=== PATIENT | female | born 1995 | race Caucasian/White ===

== ENCOUNTER 2025-07-08 16:26 | Emergency (ER) | payer OTHER, SELFPAY ==
[2025-07-08] MEDS ORDERED: Ondansetron PF 4 MG/2 ML Vial ONE (16:42)
[2025-07-08 17:11] LABS: BHCG - Serum Negative (NEGATIVE); Pregs Control Background? CLEAR/WHITE (CLR/WHITE); Pregs Control Bar Appear? YES (CONTROL BAR)
[2025-07-08 17:14] LABS: #Basophils 0.07 10x3/uL (0.0-0.2); #Eosinophils Less than 0.03 10x3/uL (0.0-0.5); #Monocytes 0.71 10x3/uL (0.0-1.1); #Neutrophils 11.66 10x3/uL (1.5-8.4); %Basophils 0.5 % (0.0-2.0); %Eosinophils 0.0 % (0.0-6.0); %Lymphocytes 4.1 % (18.0-47.0); %Monocytes 5.4 % (0.0-10.0); %Neutrophils 89.6 % (40.0-75.0); Hematocrit 42.1 % (34.9-44.5); Hemoglobin 14.2 g/dL (12.0-15.5); Mean Corpuscular Hemoglobin 33.6 pg (27.0-33.0); Mean Corpuscular Volume 99.5 fL (81.6-98.3); Platelet Count 214 10x3/uL (150-450); Red Blood Cell (RBC) Count 4.23 10x6/uL (3.90-5.03); White Blood Cell (WBC) Count 13.03 10x3/uL (3.5-10.5)
[2025-07-08 17:18] LABS: ALT (SGPT) 209 U/L (Less than 34); AST (SGOT) 431 U/L (11-34); Albumin 4.9 g/dL (3.1-4.5); Alkaline Phosphatase 89 U/L (40-110); Anion Gap 36 mmol/L (10-20); BUN (Urea Nitrogen) 7 mg/dL (7.0-18.7); Bilirubin, Total 1.2 mg/dL (0.3-1.2); Calc. Creatinine Clearance 0 mL/min (70-130); Calcium 9.6 mg/dL (7.8-10.44); Carbon Dioxide 10 mmol/L (22-29); Chloride 97 mmol/L (98-107); Globulin 3.5 g/dL (2.4-3.5); Glucose 86 mg/dL (70-105); Magnesium 1.3 mg/dL (1.6-2.6); Potassium 3.8 mmol/L (3.5-5.1); Sodium 139 mmol/L (136-145)
[2025-07-08] MEDS ORDERED: cefTRIAXone (ROCEPHIN) 1 GM VIAL ONE (17:18)
[2025-07-08 17:19] LABS: Glucose, Urine (Dipstick) Normal (Negative); Leukocyte Negative (Negative); Protein, Urine (Dipstick) 500 mg/dl (Neg-Trace); Specific Gravity, Urine 1.030 (1.005-1.030)
[2025-07-08 17:30] LABS: Troponin I Less than 0.010 ng/mL (< 0.028)
[2025-07-08] MEDS ORDERED: Magnesium 2 GM/50 ML BAG (IN WATER) ONE (17:39)
[2025-07-08 17:40] LABS: Actual Bicarbonate (HCO3v) 15.5 mEq/L (22-28); Analyzer IN Cardio CS ER; Base Excess -9.7 mEq/L (-2 - +2); Calcium, Ionized (venous) 1.07 mmol/L (1.16-1.32); Chloride (VBG) 99 mmol/L (98-106); Critical Notified Whom: COCJEF; Hematocrit-VBG 40 % (36.0-47.0); Hemoglobin (Hb) 13.5 g/dL (11.7-15.5); Potassium (VBG) 3.52 mmol/L (3.70-5.30); Puncture Site Other Site; RapidComm Collect By LAB; Sodium 137 mmol/L (133-146)
[2025-07-08 17:44] LABS: Bacteria/HPF 2+ HPF (None Seen); CAUTI Indications for Culture Pelvic or flank pain; Mucous/LPF 2+ LPF (<2+)
[2025-07-08 17:46] LABS: Acetaminophen Less than 10 mcg/mL (Less than 10); Lipase 2314 U/L (8-78); Salicylate Less than 8.0 mg/dL (Less than 8.0)
[2025-07-08 17:51] LABS: Urine Culture Reflex No No
[2025-07-08 18:05] LABS: INR-International Normal Ratio 1.0; PTT 24.1 sec (22.0-33.0); Prothrombin Time 11.4 sec (9.5-12.1)
[2025-07-08 18:22] LABS: Cocaine Metabolite Screen Negative (Negative); THC/Cannabinoid Screen PRELIM POSITIVE (Negative); Tricyclic Screen Negative (Negative)
[2025-07-08] MEDS ORDERED: HYDROmorphone 0.5 MG/0.5 ML SYRINGE ONE (19:08)
[2025-07-08 21:08] LABS: Anion Gap 22 mmol/L (10-20); BUN (Urea Nitrogen) 6 mg/dL (7.0-18.7); Calc. Creatinine Clearance 0 mL/min (70-130); Calcium 7.3 mg/dL (7.8-10.44); Carbon Dioxide 14 mmol/L (22-29); Chloride 105 mmol/L (98-107); Glucose 78 mg/dL (70-105); Potassium 4.5 mmol/L (3.5-5.1); Sodium 136 mmol/L (136-145)
== END 2025-07-08 21:00 | disposition short-term general hospital (02) ==
LOC: CSHERS 16:26
DX: K85.90 Acute pancreatitis without necrosis or infection, unspecified (principal); D27.1 Benign neoplasm of left ovary; N30.90 Cystitis, unspecified without hematuria; E83.42 Hypomagnesemia; E87.20 Acidosis, unspecified; F10.139 Alcohol abuse with withdrawal, unspecified; F17.290 Nicotine dependence, other tobacco product, uncomplicated
CPT/HCPCS: 36415; 71275; 74177; 80053; 80306; 80307; 81001; 82010; 82805; 83605; 83690; 83735; 84100; 84478; 84484; 84703; 85025; 85610; 85730; 87040; 87077; 87086; 87186; 93005; 96361; 96374; 96375; 96376; J0696; J1171; J2060; J2270; J2405; J3411; J3475

== ENCOUNTER 2025-10-06 12:57 | Inpatient (IN) | payer OTHER ==
[~2025-10-06 12:57] MED LIST: Iopamidol 300 61% 100 ML VIAL FS ONE
[2025-10-06] MEDS ORDERED: HYDROmorphone 0.5 MG/0.5 ML SYRINGE ONE ×2 (14:34→16:49)
[2025-10-06 15:05] LABS: #Basophils Less than 0.03 10x3/uL (0.0-0.2); #Eosinophils Less than 0.03 10x3/uL (0.0-0.5); #Monocytes 0.66 10x3/uL (0.0-1.1); #Neutrophils 11.32 10x3/uL (1.5-8.4); %Basophils 0.2 % (0.0-2.0); %Eosinophils 0.0 % (0.0-6.0); %Lymphocytes 2.0 % (18.0-47.0); %Monocytes 5.4 % (0.0-10.0); %Neutrophils 91.8 % (40.0-75.0); Hematocrit 47.4 % (34.9-44.5); Hemoglobin 15.7 g/dL (12.0-15.5); Mean Corpuscular Hemoglobin 32.0 pg (27.0-33.0); Mean Corpuscular Volume 96.5 fL (81.6-98.3); Platelet Count 175 10x3/uL (150-450); Red Blood Cell (RBC) Count 4.91 10x6/uL (3.90-5.03); White Blood Cell (WBC) Count 12.33 10x3/uL (3.5-10.5)
[2025-10-06 15:15] LABS: BHCG - Serum Negative (NEGATIVE); Pregs Control Background? CLEAR/WHITE (CLR/WHITE); Pregs Control Bar Appear? YES (CONTROL BAR)
[2025-10-06 15:19] LABS: Acetaminophen Less than 10 mcg/mL (Less than 10); Lipase 907 U/L (8-78); Magnesium 1.9 mg/dL (1.6-2.6); Salicylate Less than 8.0 mg/dL (Less than 8.0)
[2025-10-06 15:21] LABS: Troponin I Less than 0.010 ng/mL (< 0.028)
[2025-10-06 15:30] LABS: ALT (SGPT) 148 U/L (Less than 34); AST (SGOT) 162 U/L (11-34); Albumin 5.9 g/dL (3.1-4.5); Alkaline Phosphatase 143 U/L (40-110); BUN (Urea Nitrogen) 27 mg/dL (7.0-18.7); Bilirubin, Total 1.4 mg/dL (0.3-1.2); Calc. Creatinine Clearance 0 mL/min (70-130); Calcium 9.4 mg/dL (7.8-10.44); Chloride 94 mmol/L (98-107); Globulin 3.7 g/dL (2.4-3.5); Glucose 378 mg/dL (70-105); Potassium 5.5 mmol/L (3.5-5.1); Sodium 133 mmol/L (136-145)
[2025-10-06 15:42] LABS: Carbon Dioxide Less than 8 mmol/L (22-29)
[2025-10-06] MEDS ORDERED: INSULIN REGULAR IN 0.9 % NACL 100 ML ONE (16:20)
[2025-10-06 17:03] LABS: Cocaine Metabolite Screen Negative (Negative); THC/Cannabinoid Screen Negative (Negative); Tricyclic Screen Negative (Negative)
[2025-10-06 17:25] LABS: Glucose, Urine (Dipstick) >=1000 mg/dL (Negative); Leukocyte Negative (Negative); Protein, Urine (Dipstick) 500 mg/dl (Neg-Trace); Specific Gravity, Urine 1.020 (1.005-1.030)
[2025-10-06 17:28] LABS: Actual Bicarbonate (HCO3v) 11.8 mEq/L (22-28); Analyzer IN Cardio CS ER; Base Excess -12.9 mEq/L (-2 - +2); Calcium, Ionized (venous) 1.14 mmol/L (1.16-1.32); Chloride (VBG) 102 mmol/L (98-106); Critical Notified By: Udy, RRT; Hematocrit-VBG 43 % (36.0-47.0); Hemoglobin (Hb) 14.7 g/dL (11.7-15.5); Potassium (VBG) 4.34 mmol/L (3.70-5.30); Puncture Site Other Site; Sodium 138 mmol/L (133-146)
[2025-10-06] MEDS ORDERED: Ondansetron PF 4 MG/2 ML Vial IVP PRN (17:31)
[2025-10-06] MEDS ORDERED: Dextrose 50% Abboject 50 ML SYRINGE SLOW IVP PRN (17:33)
[2025-10-06] MEDS ORDERED: NS 0.9% w/ 20 MEQ KCL 1,000 ML IV PRN ×2 (17:33)
[2025-10-06] MEDS ORDERED: INSULIN REGULAR IN 0.9 % NACL 100 ML IVPB SCH (17:45)
[2025-10-06 17:50] LABS: Bacteria/HPF 3+ HPF (None Seen); CAUTI Indications for Culture Pelvic or flank pain; Mucous/LPF 1+ LPF (<2+)
[2025-10-06 17:51] LABS: Urine Culture Reflex No No
[2025-10-06] MEDS ORDERED: Electrolyte Replacement Protocol 1 EACH IVPB SCH (18:00)
[2025-10-06 18:03] VITALS: BMI 21.2
[2025-10-06 18:13] LABS: Anion Gap 23 mmol/L (10-20); BUN (Urea Nitrogen) 24 mg/dL (7.0-18.7); Calc. Creatinine Clearance 62 mL/min (70-130); Calcium 8.5 mg/dL (7.8-10.44); Carbon Dioxide 13 mmol/L (22-29); Chloride 104 mmol/L (98-107); Glucose 203 mg/dL (70-105); Magnesium 1.7 mg/dL (1.6-2.6); Potassium 4.7 mmol/L (3.5-5.1); Sodium 135 mmol/L (136-145)
[2025-10-06] MEDS ORDERED: Potassium Chloride 20 MEQ in Premix 1 BAG IVPB PRN (18:15)
[2025-10-06] MEDS ORDERED: hydrALAZINE 20 MG/ML VIAL SLOW IVP PRN (18:56)
[2025-10-06] MEDS: D5 1/2 NS w/20 mEq KCL 1,000 ML IV PRN (19:08)
[2025-10-06 19:23] LABS: Anion Gap 20 mmol/L (10-20); BUN (Urea Nitrogen) 23 mg/dL (7.0-18.7); Calc. Creatinine Clearance 66 mL/min (70-130); Calcium 8.3 mg/dL (7.8-10.44); Carbon Dioxide 15 mmol/L (22-29); Chloride 107 mmol/L (98-107); Glucose 137 mg/dL (70-105); Potassium 4.1 mmol/L (3.5-5.1); Sodium 138 mmol/L (136-145)
[2025-10-06] MEDS: Electrolyte Replacement Protocol 1 EACH IVPB ONE (19:51)
[2025-10-06] MEDS ORDERED: cloNIDine 0.1 MG TAB PO SCH (20:00)
[2025-10-06] MEDS: Ketorolac Tromethamine 30 MG (1 mL) VIAL IVP PRN (21:06)
[2025-10-06] MEDS: Famotidine/PF 20 mg/2ml Vial SLOW IVP SCH (21:06)
[2025-10-06] MEDS: cloNIDine 0.2mg/24 Hour PATCH TD SCH (21:06)
[2025-10-06 22:19] LABS: Anion Gap 15 mmol/L (10-20); BUN (Urea Nitrogen) 20 mg/dL (7.0-18.7); Calc. Creatinine Clearance 69 mL/min (70-130); Calcium 8.5 mg/dL (7.8-10.44); Carbon Dioxide 16 mmol/L (22-29); Chloride 108 mmol/L (98-107); Glucose 233 mg/dL (70-105); Potassium 4.4 mmol/L (3.5-5.1); Sodium 135 mmol/L (136-145)
[2025-10-07 02:12] LABS: Anion Gap 12 mmol/L (10-20); BUN (Urea Nitrogen) 18 mg/dL (7.0-18.7); Calc. Creatinine Clearance 86 mL/min (70-130); Calcium 8.6 mg/dL (7.8-10.44); Carbon Dioxide 19 mmol/L (22-29); Chloride 107 mmol/L (98-107); Glucose 192 mg/dL (70-105); Potassium 4.2 mmol/L (3.5-5.1); Sodium 134 mmol/L (136-145)
[2025-10-07] MEDS: Ketorolac Tromethamine 30 MG (1 mL) VIAL IVP SCH (04:28)
[2025-10-07 05:16] LABS: Anion Gap 13 mmol/L (10-20); BUN (Urea Nitrogen) 15 mg/dL (7.0-18.7); Calc. Creatinine Clearance 94 mL/min (70-130); Calcium 8.5 mg/dL (7.8-10.44); Carbon Dioxide 18 mmol/L (22-29); Chloride 106 mmol/L (98-107); Glucose 167 mg/dL (70-105); Magnesium 1.4 mg/dL (1.6-2.6); Potassium 4.2 mmol/L (3.5-5.1); Sodium 133 mmol/L (136-145)
[2025-10-07] MEDS: Magnesium 2 GM/50 ML(in water) 2 GM in Premix 1 BAG IVPB PRN (06:01)
[2025-10-07] MEDS ORDERED: Magnesium 2 GM/50 ML(in water) 2 GM in Premix 1 BAG IVPB SCH (06:30)
[2025-10-07] MEDS ORDERED: Potassium Phosphate 30 MMOL in Sodium Chloride 0.9% 250 ML 250 ML IVPB SCH (06:30)
[2025-10-07] MEDS: Potassium Phosphate 30 MMOL in Sodium Chloride 0.9% 250 ML 250 ML IVPB SCH (06:45)
[2025-10-07] MEDS: Sodium Bicarbonate Tab 325 MG TAB PO SCH (09:08)
[2025-10-07] MEDS ORDERED: Dextrose 50% Abboject 50 ML SYRINGE SLOW IVP PRN (09:09)
[2025-10-07] MEDS ORDERED: Glucagon 1 MG/ML KIT IM PRN (09:09)
[2025-10-07 09:10] VITALS: BP 163/112
[2025-10-07] MEDS: Enoxaparin 40 MG (0.4 mL) SYRINGE SC SCH (09:10)
[2025-10-07] MEDS: Lantus 1000 UNITS/10 ML VIAL SC SCH (10:00)
[2025-10-07] MEDS: HYDROcodone/Acetaminophen 10/325 mg Tablet PO PRN (10:11)
[2025-10-07 12:49] LABS: Anion Gap 14 mmol/L (10-20); BUN (Urea Nitrogen) 9 mg/dL (7.0-18.7); Calc. Creatinine Clearance 113 mL/min (70-130); Calcium 8.5 mg/dL (7.8-10.44); Carbon Dioxide 18 mmol/L (22-29); Chloride 106 mmol/L (98-107); Glucose 109 mg/dL (70-105); Magnesium 2.7 mg/dL (1.6-2.6); Potassium 4.9 mmol/L (3.5-5.1); Sodium 133 mmol/L (136-145)
[2025-10-07] MEDS: PHOS-NAK 1 PKT PACK PO PRN (15:38)
[2025-10-08 03:42] LABS: Anion Gap 13 mmol/L (10-20); BUN (Urea Nitrogen) 7 mg/dL (7.0-18.7); Calc. Creatinine Clearance 122 mL/min (70-130); Calcium 8.6 mg/dL (7.8-10.44); Carbon Dioxide 21 mmol/L (22-29); Chloride 104 mmol/L (98-107); Glucose 114 mg/dL (70-105); Potassium 3.7 mmol/L (3.5-5.1); Sodium 134 mmol/L (136-145)
[2025-10-08] MEDS: Potassium Phosphate 30 MMOL in Sodium Chloride 0.9% 250 ML 250 ML IVPB SCH (08:44)
[2025-10-08] MEDS: Acetaminophen 325 MG TAB PO PRN (09:08)
[2025-10-08 11:18] VITALS: TEMP 97.8
== END 2025-10-08 13:55 | disposition home or self-care (01) | DRG 640 ==
LOC: CSHERS 12:57 → CSHICU 17:09
PROVIDERS: ADMIT Internal Medicine; ATTEND Family Medicine
DX: E87.29 Other acidosis (principal); K85.20 Alcohol induced acute pancreatitis without necrosis or infection; N17.9 Acute kidney failure, unspecified; K86.0 Alcohol-induced chronic pancreatitis; E88.89 Other specified metabolic disorders; I10 Essential (primary) hypertension; F10.10 Alcohol abuse, uncomplicated; K76.0 Fatty (change of) liver, not elsewhere classified; K70.9 Alcoholic liver disease, unspecified; E28.2 Polycystic ovarian syndrome; D27.9 Benign neoplasm of unspecified ovary; E83.39 Other disorders of phosphorus metabolism; F17.290 Nicotine dependence, other tobacco product, uncomplicated; Z79.899 Other long term (current) drug therapy; R73.9 Hyperglycemia, unspecified
CPT/HCPCS: 36415; 36416; 71045; 74177; 76856; 80048; 80053; 80306; 80307; 81001; 82010; 82805; 83036; 83605; 83690; 83735; 84100; 84484; 84703; 85025; 87040; 87086; 93005; 96374; 96375; 96376; J1171; J1308; J1650; J1815; J1885; J2270; J3010; J3475; J3480; J7042; J7050; Q9967